=== PATIENT | female | born 1960 | race African-American/Black ===

== ENCOUNTER 2017-01-13 19:59 | Inpatient (IN) | payer MEDICARE, OTHER ==
[~2017-01-13] VITALS: Ht 162.6 cm; Wt 92.7 kg
[~2017-01-13 19:59] MED LIST: ALBU8.5H3 IH; ATOR40TA28 PO; GABA-531 PO; GRIS500T7 PO; LIRA0.6P SQ; METF500T4 PO; PARO20TA24 PO; PREM625 PO; VARE1TAB22 PO
[2017-01-13] MEDS ORDERED: LISI-662 PO (20:11)
[2017-01-13] MEDS ORDERED: CANA100T PO (20:11)
[2017-01-13 20:12] LABS: GLUCOSE,POINT OF CARE 110 MG/DL (70-110)
[2017-01-13 20:42] LABS: BASOPHILS % (AUTO) 0.7 % (0.0-2.0); EOSINOPHILS % (AUTO) 5.2 % (1.0-6.0); HEMATOCRIT 40.1 % (36-46); HEMOGLOBIN 12.7 g/dL (12.0-16.0); LYMPHOCYTES # (AUTO) 3.5 K/uL (1.0-4.8); LYMPHOCYTES % (AUTO) 42.4 % (22.0-44.0); MEAN CORPUSCULAR HEMOGLOBIN 28.3 pg (26.0-34.0); MEAN CORPUSCULAR HGB CONC 31.6 G/dL (31.0-37.0); MEAN CORPUSCULAR VOLUME 89 fL (80-100); MONOCYTES # (AUTO) 0.6 K/uL (0.1-1.0); MONOCYTES % (AUTO) 7.4 % (2.0-9.0); NEUTROPHILS # (AUTO) 3.7 K/uL (1.8-7.7); NEUTROPHILS % (AUTO) 44.3 % (40.0-70.0); PLATELET COUNT (AUTO) 338 K/uL (150-450); RED BLOOD CELL COUNT(AUTO) 4.48 MIL/uL (4.00-5.20); RED CELL DISTRIBUTION WIDTH 14.6 % (11.5-14.5); WHITE BLOOD COUNT (AUTO) 8.3 K/uL (4.5-11.0)
[2017-01-13] MEDS ORDERED: NITROGLYCERIN 2% (1 GM=INCH) PACKET TP ONE (20:45)
[2017-01-13] MEDS ORDERED: ASPIRIN 81 MG CHEWABLE TABLET PO ONE (20:45)
[2017-01-13 20:53] LABS: ANION GAP 9 mmol/L (8-16); CALCIUM, TOTAL 9.1 mg/dL (8.8-10.5); CARBON DIOXIDE 29 mmol/L (22-29); CHLORIDE 105 mmol/L (98-107); CREATININE 1.01 mg/dL (0.60-1.30); GLOMERULAR FILTR. RATE CALC > 60 mL/min (>60); POTASSIUM 3.5 mmol/L (3.5-5.1); SODIUM SERUM 143 mmol/L (136-145); UREA NITROGEN, BLOOD 15 mg/dL (7-18)
[2017-01-13 21:14] LABS: B-TYPE NATRIURETIC PEPTIDE 5 pg/mL (0-100)
[2017-01-13 21:18] LABS: ALANINE AMINOTRANSFERASE 20 U/L (12-78); ALBUMIN 3.4 g/dL (3.4-5.0); ASPARTATE AMINOTRANSFERASE 13 U/L (15-37); BILIRUBIN,TOTAL 0.1 mg/dL (0.1-1.0); CREATINE KINASE MB < 0.5 ng/mL (0-5); CREATINE KINASE, TOTAL 132 U/L (26-192); TOTAL PROTEIN, SERUM 7.9 g/dL (6.4-8.2)
[2017-01-13] MEDS ORDERED: MORPHINE SULFATE 4 MG/ML SYRINGE IVP ONE (21:30)
[2017-01-13] MEDS ORDERED: ONDANSETRON HCL 4 MG/2 ML VIAL IVP ONE (21:30)
[2017-01-13] MEDS ORDERED: MORPHINE SULFATE 4 MG/ML SYRINGE IVP PRN (22:00)
[2017-01-13] MEDS ORDERED: ONDANSETRON HCL 4 MG/2 ML VIAL IVP PRN (22:00)
[2017-01-13] MEDS ORDERED: 0.9% SODIUM CHLORIDE 10 ML SYRINGE IVP PRN (22:00)
[2017-01-13] MEDS ORDERED: ACETAMINOPHEN 325 MG TABLET PO PRN (22:00)
[2017-01-14] MEDS ORDERED: HYDROCODONE/ACETAMINOPHEN 5-325 MG TABLET PO PRN (01:15)
[2017-01-14] MEDS ORDERED: IPRATROPIUM BROMIDE 0.5 MG/2.5 ML NEB SOLUTION NEB PRN (01:15)
[2017-01-14] MEDS ORDERED: ACETAMINOPHEN 325 MG TABLET PO PRN (01:15)
[2017-01-14] MEDS ORDERED: ONDANSETRON HCL 4 MG/2 ML VIAL IVP PRN (01:15)
[2017-01-14] MEDS ORDERED: MAGNESIUM HYDROXIDE SUSPENSION 30 ML UDCUP PO PRN (01:15)
[2017-01-14] MEDS ORDERED: ZOLPIDEM TARTRATE 10 MG TABLET PO PRN (01:15)
[2017-01-14] MEDS: MORPHINE SULFATE 2 MG/ML SYRINGE IVP PRN ×4 (01:37→08:24)
[2017-01-14 01:51] LABS: APPEARANCE,URINE CLOUDY (CLEAR); GLUCOSE, URINE (UA) NEGATIVE (NEGATIVE); KETONES,URINE NEGATIVE (NEGATIVE); LEUKOCYTE ESTERASE ,URINE MODERATE (NEGATIVE); OCCULT BLOOD,URINE NEGATIVE (NEGATIVE); PROTEIN,URINE TRACE (NEGATIVE)
[2017-01-14 02:10] LABS: ADD UA MICROSCOPIC YES
[2017-01-14 02:20] LABS: SQUAMOUS EPITHELIAL CELL,UR Many /LPF (None Seen)
[2017-01-14 02:21] LABS: RBC,URINE 0-2 /HPF (0-2)
[2017-01-14 03:01] LABS: BASOPHILS % (AUTO) 0.7 % (0.0-2.0); EOSINOPHILS % (AUTO) 4.7 % (1.0-6.0); HEMATOCRIT 38.4 % (36-46); HEMOGLOBIN 12.2 g/dL (12.0-16.0); LYMPHOCYTES # (AUTO) 3.7 K/uL (1.0-4.8); MEAN CORPUSCULAR HEMOGLOBIN 28.2 pg (26.0-34.0); MEAN CORPUSCULAR HGB CONC 31.7 G/dL (31.0-37.0); MEAN CORPUSCULAR VOLUME 89 fL (80-100); MONOCYTES # (AUTO) 0.6 K/uL (0.1-1.0); NEUTROPHILS # (AUTO) 4.2 K/uL (1.8-7.7); NEUTROPHILS % (AUTO) 46.6 % (40.0-70.0); PLATELET COUNT (AUTO) 324 K/uL (150-450); RED BLOOD CELL COUNT(AUTO) 4.32 MIL/uL (4.00-5.20); RED CELL DISTRIBUTION WIDTH 14.1 % (11.5-14.5); WHITE BLOOD COUNT (AUTO) 9.1 K/uL (4.5-11.0)
[2017-01-14 03:47] LABS: ALANINE AMINOTRANSFERASE 23 U/L (12-78); ALBUMIN 3.4 g/dL (3.4-5.0); ANION GAP 8 mmol/L (8-16); ASPARTATE AMINOTRANSFERASE 15 U/L (15-37); BILIRUBIN,TOTAL 0.2 mg/dL (0.1-1.0); CALCIUM, TOTAL 8.8 mg/dL (8.8-10.5); CARBON DIOXIDE 28 mmol/L (22-29); CHLORIDE 105 mmol/L (98-107); CREATININE 1.04 mg/dL (0.60-1.30); GLOMERULAR FILTR. RATE CALC > 60 mL/min (>60); POTASSIUM 3.8 mmol/L (3.5-5.1); SODIUM SERUM 141 mmol/L (136-145); TOTAL PROTEIN, SERUM 7.8 g/dL (6.4-8.2); UREA NITROGEN, BLOOD 17 mg/dL (7-18)
[2017-01-14] MEDS: NITROGLYCERIN 2% (1 GM=INCH) PACKET TP SCH ×4 (05:19→23:59)
[2017-01-14] MEDS ORDERED: CANAGLIFLOZIN 100 MG TABLET PO SCH (06:30)
[2017-01-14] MEDS: DOCUSATE SODIUM 100 MG CAPSULE PO SCH ×2 (08:10→21:01)
[2017-01-14] MEDS: ASPIRIN 81 MG CHEWABLE TABLET PO SCH (08:10)
[2017-01-14] MEDS: ATORVASTATIN CALCIUM 40 MG TABLET PO SCH (08:11)
[2017-01-14] MEDS: PANTOPRAZOLE SODIUM 40 MG/VIAL IVP SCH (08:11)
[2017-01-14] MEDS ORDERED: OXYC80 PO (08:18)
[2017-01-14] MEDS ORDERED: OXYC30TA2 PO (08:18)
[2017-01-14] MEDS: LISINOPRIL 20 MG TABLET PO SCH (08:24)
[2017-01-14] MEDS: GABAPENTIN 100 MG CAPSULE PO SCH ×3 (08:46→21:00)
[2017-01-14 08:52] LABS: GLUCOSE,POINT OF CARE 159 MG/DL (70-110)
[2017-01-14] MEDS ORDERED: LIRAGLUTIDE 1.2 MG SQ SCH (09:00)
[2017-01-14 09:37] VITALS: BP 130/82
[2017-01-14] MEDS ORDERED: INSULIN REGULAR, HUMAN 100 UNITS/ML SQ PRN (10:00)
[2017-01-14] MEDS ORDERED: DEXTROSE 50%-WATER 25 GM/50 ML SYRINGE IVP PRN (10:00)
[2017-01-14 11:29] VITALS: BP 135/75
[2017-01-14] MEDS: OxyCODONE HCL 40 MG ER TABLET PO SCH ×3 (13:02→23:59)
[2017-01-14] MEDS: OxyCODONE HCL 10 MG IR TABLET PO PRN ×2 (13:03→21:01)
[2017-01-14 13:53] VITALS: BP 143/86
[2017-01-14 14:12] LABS: GLUCOSE,POINT OF CARE 207 MG/DL (70-110)
[2017-01-14 18:48] VITALS: BP 125/73
[2017-01-14 19:20] VITALS: BP 141/82
[2017-01-14] MEDS ORDERED: QUEtiapine FUMARATE 100 MG TABLET PO SCH (21:00)
[2017-01-14 23:41] VITALS: BP 121/58
[2017-01-15 04:05] VITALS: BP 125/63
[2017-01-15] MEDS: NITROGLYCERIN 2% (1 GM=INCH) PACKET TP SCH ×3 (06:39→17:42)
[2017-01-15 07:04] LABS: CHOL/HDL RATIO 4.1 (3.9-5.7)
[2017-01-15 07:12] VITALS: BP 126/74
[2017-01-15] MEDS: DOCUSATE SODIUM 100 MG CAPSULE PO SCH (08:34)
[2017-01-15] MEDS: LISINOPRIL 20 MG TABLET PO SCH (08:34)
[2017-01-15] MEDS: ATORVASTATIN CALCIUM 40 MG TABLET PO SCH (08:34)
[2017-01-15] MEDS: GABAPENTIN 100 MG CAPSULE PO SCH ×2 (08:34→17:42)
[2017-01-15] MEDS: ASPIRIN 81 MG CHEWABLE TABLET PO SCH (08:34)
[2017-01-15] MEDS: OxyCODONE HCL 10 MG IR TABLET PO PRN ×2 (08:41→15:50)
[2017-01-15] MEDS: OxyCODONE HCL 40 MG ER TABLET PO SCH ×2 (10:49→17:42)
[2017-01-15] MEDS: PANTOPRAZOLE SODIUM 40 MG/VIAL IVP SCH (10:55)
[2017-01-15 11:34] VITALS: BP 137/84
[2017-01-15] MEDS ORDERED: INSULIN ASPART 100 UNITS/ML SQ PRN (12:00)
[2017-01-15 13:38] LABS: GLUCOSE,POINT OF CARE 136 MG/DL (70-110)
[2017-01-15 13:38] LABS: GLUCOSE COMMENT 1 Received Meds; GLUCOSE,POINT OF CARE 167 MG/DL (70-110)
[2017-01-15 13:42] LABS: GLUCOSE,POINT OF CARE 131 MG/DL (70-110)
[2017-01-15 15:14] VITALS: BP 143/86
[2017-01-15] MEDS ORDERED: GABA-531 PO (19:29)
[2017-01-15 19:32] VITALS: BP 126/68
[2017-01-15 20:47] LABS: GLUCOSE,POINT OF CARE 132 MG/DL (70-110)
== END 2017-01-15 19:50 | disposition home or self-care (01) | DRG 313 ==
LOC: EMS 20:00 → AHU 01-14 08:35 → 5N 01-14 18:11
PROVIDERS: ADMIT Hospitalist; ATTEND Hospitalist
DX: R07.9 Chest pain, unspecified (principal); I10 Essential (primary) hypertension; E11.9 Type 2 diabetes mellitus without complications; E78.5 Hyperlipidemia, unspecified; G89.4 Chronic pain syndrome; F41.9 Anxiety disorder, unspecified; J45.909 Unspecified asthma, uncomplicated; F32.9 Major depressive disorder, single episode, unspecified; I25.10 Atherosclerotic heart disease of native coronary artery without angina pectoris; J44.9 Chronic obstructive pulmonary disease, unspecified; F17.210 Nicotine dependence, cigarettes, uncomplicated; Z90.710 Acquired absence of both cervix and uterus; Z79.899 Other long term (current) drug therapy; Z79.84 Long term (current) use of oral hypoglycemic drugs; Z87.440 Personal history of urinary (tract) infections
CPT/HCPCS: 72141; 82962; 87086; 93005; 99285; C9113; J2270; J2405

== ENCOUNTER 2017-02-10 08:49 | Emergency (ER) | payer MEDICARE, OTHER ==
[~2017-02-10] VITALS: Ht 162.6 cm; Wt 84.1 kg
[~2017-02-10 08:49] MED LIST changes: +CANA100T PO; -GRIS500T7 PO; +LISI-662 PO; -METF500T4 PO; +OXYC30TA2 PO; +OXYC80 PO; -PARO20TA24 PO; -PREM625 PO; -VARE1TAB22 PO
[2017-02-10 09:02] LABS: GLUCOSE,POINT OF CARE 137 MG/DL (70-110)
[2017-02-10] MEDS ORDERED: ONDANSETRON HCL 4 MG/2 ML VIAL IVP ONE (11:30)
[2017-02-10] MEDS ORDERED: MORPHINE SULFATE 2 MG/ML SYRINGE IVP ONE ×2 (11:30→12:30)
[2017-02-10 12:03] VITALS: BP 119/84
== END 2017-02-10 13:40 | disposition left against medical advice (07) ==
LOC: EMS 08:51
DX: G43.909 Migraine, unspecified, not intractable, without status migrainosus (principal); I25.10 Atherosclerotic heart disease of native coronary artery without angina pectoris; J44.9 Chronic obstructive pulmonary disease, unspecified; J45.909 Unspecified asthma, uncomplicated; E11.9 Type 2 diabetes mellitus without complications; I10 Essential (primary) hypertension; F17.210 Nicotine dependence, cigarettes, uncomplicated
CPT/HCPCS: 70450; 82962; 96374; 96375; 99284; J2270; J2405

== ENCOUNTER 2017-07-10 12:40 | Inpatient (IN) | payer MEDICARE, OTHER ==
[~2017-07-10] VITALS: Ht 162.6 cm; Wt 88.2 kg
[~2017-07-10 12:40] MED LIST changes: -OXYC80 PO
[2017-07-10 12:53] LABS: GLUCOSE,POINT OF CARE 97 MG/DL (70-110)
[2017-07-10] MEDS ORDERED: IOVERSOL 350 MG/ML 100 ML VIAL ONE (13:00)
[2017-07-10 13:25] LABS: BASOPHILS % (AUTO) 0.3 % (0.0-2.0); EOSINOPHILS % (AUTO) 2.1 % (1.0-6.0); HEMATOCRIT 39.3 % (36-46); HEMOGLOBIN 13.2 g/dL (12.0-16.0); LYMPHOCYTES # (AUTO) 2.2 K/uL (1.0-4.8); LYMPHOCYTES % (AUTO) 24.5 % (22.0-44.0); MEAN CORPUSCULAR HEMOGLOBIN 30.4 pg (26.0-34.0); MEAN CORPUSCULAR HGB CONC 33.5 G/dL (31.0-37.0); MEAN CORPUSCULAR VOLUME 91 fL (80-100); MONOCYTES % (AUTO) 10.5 % (2.0-9.0); NEUTROPHILS # (AUTO) 5.7 K/uL (1.8-7.7); NEUTROPHILS % (AUTO) 62.6 % (40.0-70.0); PLATELET COUNT (AUTO) 316 K/uL (150-450); RED BLOOD CELL COUNT(AUTO) 4.34 MIL/uL (4.00-5.20); RED CELL DISTRIBUTION WIDTH 13.8 % (11.5-14.5); WHITE BLOOD COUNT (AUTO) 9.1 K/uL (4.5-11.0)
[2017-07-10 13:33] LABS: ANION GAP 10 mmol/L (8-16); CALCIUM, TOTAL 9.5 mg/dL (8.8-10.5); CARBON DIOXIDE 27 mmol/L (22-29); CHLORIDE 105 mmol/L (98-107); CREATININE 0.96 mg/dL (0.60-1.30); GLOMERULAR FILTR. RATE CALC > 60 mL/min (>60); POTASSIUM 4.2 mmol/L (3.5-5.1); SODIUM SERUM 142 mmol/L (136-145); UREA NITROGEN, BLOOD 15 mg/dL (7-18)
[2017-07-10 13:35] LABS: PROTHROMBIN TIME 10.7 SEC (9.4-11.6)
[2017-07-10] MEDS ORDERED: ASPIRIN 325 MG EC TABLET PO ONE (13:45)
[2017-07-10 13:58] LABS: ALANINE AMINOTRANSFERASE 23 U/L (12-78); ALBUMIN 4.1 g/dL (3.4-5.0); ASPARTATE AMINOTRANSFERASE 18 U/L (15-37); BILIRUBIN,TOTAL 0.6 mg/dL (0.1-1.0); CREATINE KINASE, TOTAL 144 U/L (26-192); TOTAL PROTEIN, SERUM 7.9 g/dL (6.4-8.2)
[2017-07-10] MEDS ORDERED: SODIUM CHLORIDE 0.9% 1,000 ML IV ONE (14:00)
[2017-07-10 14:02] LABS: CREATINE KINASE MB < 0.5 ng/mL (0-5)
[2017-07-10 14:19] LABS: APPEARANCE,URINE CLEAR (CLEAR); GLUCOSE, URINE (UA) >=1000 mg/dL (NEGATIVE); KETONES,URINE NEGATIVE (NEGATIVE); LEUKOCYTE ESTERASE ,URINE NEGATIVE (NEGATIVE); OCCULT BLOOD,URINE NEGATIVE (NEGATIVE); PROTEIN,URINE NEGATIVE (NEGATIVE)
[2017-07-10 14:27] LABS: ADD UA MICROSCOPIC YES
[2017-07-10 14:28] LABS: RBC,URINE 0-2 /HPF (0-2); SQUAMOUS EPITHELIAL CELL,UR Few /LPF (None Seen); WBC,URINE 0-2 /HPF (0-5)
[2017-07-10 14:57] LABS: ERYTHROCYTE SEDIMENTATION RATE 31 MM/HR (0-20)
[2017-07-10] MEDS ORDERED: ZOLPIDEM TARTRATE 5 MG TABLET PO PRN (17:00)
[2017-07-10] MEDS ORDERED: MAGNESIUM HYDROXIDE SUSPENSION 30 ML UDCUP PO PRN (17:00)
[2017-07-10] MEDS ORDERED: ONDANSETRON HCL 4 MG/2 ML VIAL IVP PRN (17:00)
[2017-07-10] MEDS ORDERED: MORPHINE SULFATE 2 MG/ML SYRINGE IVP PRN (17:00)
[2017-07-10] MEDS ORDERED: ACETAMINOPHEN 325 MG TABLET PO PRN (17:00)
[2017-07-10] MEDS ORDERED: BISACODYL 10 MG RECTAL RECTAL SUPPOSITORY PR PRN (17:00)
[2017-07-10] MEDS: DOCUSATE SODIUM 100 MG CAPSULE PO SCH (19:53)
[2017-07-10 20:00] VITALS: BP 135/68
[2017-07-10 20:11] VITALS: BP 113/64
[2017-07-10] MEDS ORDERED: INFLUENZA VIRUS VACCINE QVS 2017-18 (3YR+)/PF 60 MCG/0.5 ML SYRINGE IM ONE (20:30)
[2017-07-10] MEDS ORDERED: OxyCODONE HCL/ACETAMINOPHEN 5-325 MG TABLET PO PRN (21:45)
[2017-07-10 22:00] VITALS: BP 118/72
[2017-07-10] MEDS: OxyCODONE HCL/ACETAMINOPHEN 5-325 MG TABLET PO PRN (22:05)
[2017-07-10 23:05] VITALS: BP 114/68
[2017-07-10] MEDS: HEPARIN SODIUM,PORCINE 5,000 UNITS/ML VIAL SQ SCH ×2 (23:41→23:47)
[2017-07-11] VITALS (7 sets, daily range): BP systolic 101–130; BP diastolic 50–80
[2017-07-11] MEDS: OxyCODONE HCL/ACETAMINOPHEN 5-325 MG TABLET PO PRN ×2 (04:49→13:03)
[2017-07-11 04:54] LABS: BASOPHILS # (AUTO) 0.03 K/uL (0.00-0.20); BASOPHILS % (AUTO) 0.4 % (0.0-2.0); EOSINOPHILS # (AUTO) 0.23 K/uL (0.00-0.70); EOSINOPHILS % (AUTO) 3.73 % (1.0-6.0); HEMATOCRIT 38.5 % (36-46); HEMOGLOBIN 12.6 g/dL (12.0-16.0); LYMPHOCYTES # (AUTO) 2.1 K/uL (1.0-4.8); LYMPHOCYTES % (AUTO) 34.9 % (22.0-44.0); MEAN CORPUSCULAR HEMOGLOBIN 30.1 pg (26.0-34.0); MEAN CORPUSCULAR HGB CONC 32.6 G/dL (31.0-37.0); MEAN CORPUSCULAR VOLUME 92 fL (80-100); MONOCYTES # (AUTO) 0.8 K/uL (0.1-1.0); MONOCYTES % (AUTO) 13.5 % (2.0-9.0); NEUTROPHILS # (AUTO) 2.9 K/uL (1.8-7.7); NEUTROPHILS % (AUTO) 47.4 % (40.0-70.0); PLATELET COUNT (AUTO) 291 K/uL (150-450); RED BLOOD CELL COUNT(AUTO) 4.18 MIL/uL (4.00-5.20); RED CELL DISTRIBUTION WIDTH 14.2 % (11.5-14.5); WHITE BLOOD COUNT (AUTO) 6.1 K/uL (4.5-11.0)
[2017-07-11 05:24] LABS: ANION GAP 6 mmol/L (8-16); CALCIUM, TOTAL 8.9 mg/dL (8.8-10.5); CARBON DIOXIDE 28 mmol/L (22-29); CHLORIDE 107 mmol/L (98-107); CREATININE 0.88 mg/dL (0.60-1.30); GLOMERULAR FILTR. RATE CALC > 60 mL/min (>60); POTASSIUM 4.1 mmol/L (3.5-5.1); SODIUM SERUM 141 mmol/L (136-145); THYROID STIMULATING HORMONE 5.34 uIU/mL (0.36-3.74); UREA NITROGEN, BLOOD 13 mg/dL (7-18)
[2017-07-11] MEDS: HEPARIN SODIUM,PORCINE 5,000 UNITS/ML VIAL SQ SCH ×2 (08:11→16:00)
[2017-07-11] MEDS: DOCUSATE SODIUM 100 MG CAPSULE PO SCH (08:11)
[2017-07-11] MEDS ORDERED: PANTOPRAZOLE SODIUM 40 MG DR TABLET PO SCH (09:00)
[2017-07-11] MEDS: HYDROCODONE/ACETAMINOPHEN 5-325 MG TABLET PO PRN ×2 (10:37→16:21)
[2017-07-11 17:39] LABS: CHOL/HDL RATIO 2.7 (3.9-5.7)
[2017-07-11 18:09] LABS: HEMOGLOBIN A1C 7.4 % (4.5-6.2)
[2017-07-11] MEDS ORDERED: ASPIRIN 81 MG CHEWABLE TABLET PO ONE (20:00)
== END 2017-07-11 18:20 | DRG 66 ==
LOC: EMS 12:41 → ICU 17:38
PROVIDERS: ADMIT Internal Medicine; ATTEND Internal Medicine
DX: I63.9 Cerebral infarction, unspecified (principal); R47.01 Aphasia; E11.9 Type 2 diabetes mellitus without complications; E78.5 Hyperlipidemia, unspecified; I10 Essential (primary) hypertension; J45.909 Unspecified asthma, uncomplicated; H54.40 Blindness, one eye, unspecified eye; I25.10 Atherosclerotic heart disease of native coronary artery without angina pectoris; F41.9 Anxiety disorder, unspecified; J44.9 Chronic obstructive pulmonary disease, unspecified; F32.9 Major depressive disorder, single episode, unspecified; F17.210 Nicotine dependence, cigarettes, uncomplicated; Z87.440 Personal history of urinary (tract) infections; Z79.899 Other long term (current) drug therapy; Z90.710 Acquired absence of both cervix and uterus; Z86.73 Personal history of transient ischemic attack (TIA), and cerebral infarction without residual deficits
CPT/HCPCS: 51702; 70496; 70551; 82607; 82746; 82962; 83036; 84443; 85651; 87081; 92523; 93005; 93306; 93880; 96360; 97162; 99291; J1644; J2270

== ENCOUNTER 2017-07-11 17:46 | Inpatient (IN) | payer MEDICARE, OTHER ==
[~2017-07-11] VITALS: Ht 162.6 cm; Wt 85.7 kg
[2017-07-11 18:45] VITALS: BP 126/69
[2017-07-11] MEDS ORDERED: HYDROCODONE/ACETAMINOPHEN 5-325 MG TABLET PO PRN (19:15)
[2017-07-11] MEDS ORDERED: ALBUTEROL SULFATE HFA 90 MCG/PUFF 8 GM INHALER IH PRN (19:15)
[2017-07-11] MEDS ORDERED: ONDANSETRON HCL 4 MG TABLET PO PRN (19:15)
[2017-07-11] MEDS ORDERED: ACETAMINOPHEN 325 MG TABLET PO PRN (19:15)
[2017-07-11] MEDS ORDERED: MAGNESIUM HYDROXIDE SUSPENSION 30 ML UDCUP PO PRN (19:15)
[2017-07-11] MEDS ORDERED: ZOLPIDEM TARTRATE 5 MG TABLET PO PRN (19:15)
[2017-07-11] MEDS ORDERED: INFLUENZA VIRUS VACCINE QVS 2017-18 (3YR+)/PF 60 MCG/0.5 ML SYRINGE IM ONE (21:00)
[2017-07-11] MEDS: GABAPENTIN 300 MG CAPSULE PO SCH (21:16)
[2017-07-11] MEDS: HEPARIN SODIUM,PORCINE 5,000 UNITS/ML VIAL SQ SCH (21:17)
[2017-07-11] MEDS: DOCUSATE SODIUM 100 MG CAPSULE PO SCH (21:18)
[2017-07-11] MEDS: SENNA 187 MG TABLET PO SCH (21:18)
[2017-07-11 21:24] LABS: APPEARANCE,URINE CLOUDY (CLEAR); GLUCOSE, URINE (UA) >=1000 mg/dL (NEGATIVE); KETONES,URINE NEGATIVE (NEGATIVE); LEUKOCYTE ESTERASE ,URINE MODERATE (NEGATIVE); OCCULT BLOOD,URINE SMALL (NEGATIVE); PH,URINE 6.5 (5.0-8.0); PROTEIN,URINE TRACE (NEGATIVE)
[2017-07-11 21:32] LABS: GLUCOSE,POINT OF CARE 172 MG/DL (70-110)
[2017-07-11 21:43] LABS: RBC,URINE 0-2 /HPF (0-2)
[2017-07-11 21:44] LABS: SQUAMOUS EPITHELIAL CELL,UR Few /LPF (None Seen)
[2017-07-11] MEDS: OxyCODONE HCL/ACETAMINOPHEN 5-325 MG TABLET PO PRN (21:45)
[2017-07-11 23:59] VITALS: BP 122/73
[2017-07-12] MEDS: OxyCODONE HCL/ACETAMINOPHEN 5-325 MG TABLET PO PRN ×4 (04:57→17:09)
[2017-07-12 06:03] LABS: GLUCOSE,POINT OF CARE 145 MG/DL (70-110)
[2017-07-12 06:25] LABS: BASOPHILS % (AUTO) 0.4 % (0.0-2.0); EOSINOPHILS % (AUTO) 3.4 % (1.0-6.0); HEMATOCRIT 39.4 % (36-46); HEMOGLOBIN 13.4 g/dL (12.0-16.0); LYMPHOCYTES # (AUTO) 2.6 K/uL (1.0-4.8); LYMPHOCYTES % (AUTO) 38.2 % (22.0-44.0); MEAN CORPUSCULAR HEMOGLOBIN 30.6 pg (26.0-34.0); MEAN CORPUSCULAR VOLUME 90 fL (80-100); MONOCYTES # (AUTO) 0.7 K/uL (0.1-1.0); MONOCYTES % (AUTO) 10.1 % (2.0-9.0); NEUTROPHILS # (AUTO) 3.3 K/uL (1.8-7.7); NEUTROPHILS % (AUTO) 47.9 % (40.0-70.0); PLATELET COUNT (AUTO) 309 K/uL (150-450); RED BLOOD CELL COUNT(AUTO) 4.38 MIL/uL (4.00-5.20); RED CELL DISTRIBUTION WIDTH 13.8 % (11.5-14.5); WHITE BLOOD COUNT (AUTO) 6.9 K/uL (4.5-11.0)
[2017-07-12 06:54] LABS: ALANINE AMINOTRANSFERASE 25 U/L (12-78); ALBUMIN 3.6 g/dL (3.4-5.0); ANION GAP 11 mmol/L (8-16); ASPARTATE AMINOTRANSFERASE 21 U/L (15-37); BILIRUBIN,TOTAL 0.3 mg/dL (0.1-1.0); CALCIUM, TOTAL 9.1 mg/dL (8.8-10.5); CARBON DIOXIDE 26 mmol/L (22-29); CHLORIDE 107 mmol/L (98-107); CREATININE 0.92 mg/dL (0.60-1.30); GLOMERULAR FILTR. RATE CALC > 60 mL/min (>60); POTASSIUM 3.8 mmol/L (3.5-5.1); SODIUM SERUM 144 mmol/L (136-145); TOTAL PROTEIN, SERUM 7.6 g/dL (6.4-8.2); UREA NITROGEN, BLOOD 14 mg/dL (7-18)
[2017-07-12] MEDS ORDERED: CANAGLIFLOZIN 100 MG PO SCH (07:00)
[2017-07-12 08:17] VITALS: BP 117/74
[2017-07-12] MEDS: GABAPENTIN 300 MG CAPSULE PO SCH ×3 (08:39→21:19)
[2017-07-12] MEDS: ATORVASTATIN CALCIUM 40 MG TABLET PO SCH (09:22)
[2017-07-12] MEDS: DOCUSATE SODIUM 100 MG CAPSULE PO SCH ×2 (09:22→21:19)
[2017-07-12] MEDS: LISINOPRIL 20 MG TABLET PO SCH (09:22)
[2017-07-12] MEDS: PANTOPRAZOLE SODIUM 40 MG DR TABLET PO SCH (09:22)
[2017-07-12] MEDS: HEPARIN SODIUM,PORCINE 5,000 UNITS/ML VIAL SQ SCH ×3 (09:22→21:20)
[2017-07-12] MEDS ORDERED: *PATIENT'S OWN MED [ENTER DRUG, DOSE, FREQUENCY IN COMMENTS] CLINICAL ONE ×2 (12:15)
[2017-07-12] MEDS: CANAGLIFLOZIN 300 MG PO SCH (12:40)
[2017-07-12] MEDS: PRE FILLED SQ SCH (13:20)
[2017-07-12] MEDS: LIRAGLUTIDE 18 MG/3 ML SQ SCH (13:20)
[2017-07-12 15:29] VITALS: BP 103/65
[2017-07-12 17:37] LABS: GLUCOSE,POINT OF CARE 148 MG/DL (70-110)
[2017-07-12] MEDS: SENNA 187 MG TABLET PO SCH (21:19)
[2017-07-12 22:18] LABS: GLUCOSE,POINT OF CARE 149 MG/DL (70-110)
[2017-07-12 22:47] LABS: GLUCOSE,POINT OF CARE 136 MG/DL (70-110)
[2017-07-13 05:38] VITALS: BP 106/60
[2017-07-13 06:22] LABS: GLUCOSE,POINT OF CARE 102 MG/DL (70-110)
[2017-07-13] MEDS: CANAGLIFLOZIN 300 MG PO SCH (06:48)
[2017-07-13 08:10] VITALS: BP 120/70
[2017-07-13] MEDS: OxyCODONE HCL/ACETAMINOPHEN 5-325 MG TABLET PO PRN (08:17)
[2017-07-13] MEDS: PRE FILLED SQ SCH (08:20)
[2017-07-13] MEDS: GABAPENTIN 300 MG CAPSULE PO SCH ×3 (08:20→20:39)
[2017-07-13] MEDS: ATORVASTATIN CALCIUM 40 MG TABLET PO SCH (08:20)
[2017-07-13] MEDS: HEPARIN SODIUM,PORCINE 5,000 UNITS/ML VIAL SQ SCH ×3 (08:20→20:39)
[2017-07-13] MEDS: LIRAGLUTIDE 18 MG/3 ML SQ SCH (08:20)
[2017-07-13] MEDS: LISINOPRIL 20 MG TABLET PO SCH (08:20)
[2017-07-13] MEDS: DOCUSATE SODIUM 100 MG CAPSULE PO SCH ×2 (08:20→20:39)
[2017-07-13] MEDS: PANTOPRAZOLE SODIUM 40 MG DR TABLET PO SCH (08:20)
[2017-07-13 12:13] LABS: GLUCOSE,POINT OF CARE 91 MG/DL (70-110)
[2017-07-13] MEDS: ASPIRIN 81 MG EC TABLET PO SCH (14:21)
[2017-07-13] MEDS: OxyCODONE HCL 5 MG IR TABLET PO PRN ×2 (14:34→18:53)
[2017-07-13] MEDS ORDERED: FLUTICASONE FUROATE 100 MCG/INH INHALER [14] IH PRN (15:30)
[2017-07-13 15:33] VITALS: BP 128/72
[2017-07-13 17:51] LABS: APPEARANCE,URINE CLOUDY (CLEAR); GLUCOSE, URINE (UA) >=1000 mg/dL (NEGATIVE); KETONES,URINE NEGATIVE (NEGATIVE); LEUKOCYTE ESTERASE ,URINE SMALL (NEGATIVE); OCCULT BLOOD,URINE NEGATIVE (NEGATIVE); PROTEIN,URINE NEGATIVE (NEGATIVE)
[2017-07-13 18:07] LABS: RBC,URINE 0-2 /HPF (0-2); SQUAMOUS EPITHELIAL CELL,UR Few /LPF (None Seen)
[2017-07-13] MEDS ORDERED: ALBUTEROL SULFATE HFA 90 MCG/PUFF 8 GM INHALER IH PRN (19:15)
[2017-07-13 19:22] LABS: GLUCOSE,POINT OF CARE 119 MG/DL (70-110)
[2017-07-13] MEDS: SENNA 187 MG TABLET PO SCH (20:39)
[2017-07-13] MEDS: OxyCODONE HCL 10 MG ER TABLET PO SCH (20:39)
[2017-07-13 22:37] LABS: GLUCOSE,POINT OF CARE 152 MG/DL (70-110)
[2017-07-14 01:04] VITALS: BP 100/61
[2017-07-14 05:53] LABS: GLUCOSE,POINT OF CARE 181 MG/DL (70-110)
[2017-07-14] MEDS: CANAGLIFLOZIN 300 MG PO SCH (06:25)
[2017-07-14 07:30] VITALS: BP 103/57
[2017-07-14] MEDS: OxyCODONE HCL 10 MG ER TABLET PO SCH ×2 (08:02→21:07)
[2017-07-14] MEDS: ATORVASTATIN CALCIUM 40 MG TABLET PO SCH (08:03)
[2017-07-14] MEDS: PRE FILLED SQ SCH (08:03)
[2017-07-14] MEDS: LISINOPRIL 20 MG TABLET PO SCH (08:03)
[2017-07-14] MEDS: PANTOPRAZOLE SODIUM 40 MG DR TABLET PO SCH (08:03)
[2017-07-14] MEDS: ASPIRIN 81 MG EC TABLET PO SCH (08:03)
[2017-07-14] MEDS: LIRAGLUTIDE 18 MG/3 ML SQ SCH (08:03)
[2017-07-14] MEDS: GABAPENTIN 300 MG CAPSULE PO SCH ×3 (08:03→21:07)
[2017-07-14] MEDS: FLUTICASONE FUROATE 100 MCG/INH INHALER [14] IH SCH (08:03)
[2017-07-14] MEDS: DOCUSATE SODIUM 100 MG CAPSULE PO SCH ×2 (08:03→21:07)
[2017-07-14] MEDS: HEPARIN SODIUM,PORCINE 5,000 UNITS/ML VIAL SQ SCH ×3 (08:03→21:07)
[2017-07-14] MEDS: FENOFIBRATE,MICRONIZED 67 MG CAPSULE PO SCH (08:40)
[2017-07-14] MEDS ORDERED: FENOFIBRATE 48 MG TABLET PO SCH (09:00)
[2017-07-14 11:28] LABS: GLUCOSE,POINT OF CARE 124 MG/DL (70-110)
[2017-07-14] MEDS: OxyCODONE HCL 5 MG IR TABLET PO PRN ×2 (12:46→16:49)
[2017-07-14] MEDS: LEVOTHYROXINE SODIUM 25 MCG TABLET PO SCH (12:53)
[2017-07-14 15:21] VITALS: BP 118/72
[2017-07-14] MEDS: GuaiFENesin [SUGAR-FREE] 200 MG/10 ML SOLUTION UDCUP PO PRN (16:20)
[2017-07-14 17:42] LABS: GLUCOSE,POINT OF CARE 121 MG/DL (70-110)
[2017-07-14] MEDS ORDERED: GuaiFENesin [SUGAR-FREE] 200 MG/10 ML SOLUTION UDCUP PO SCH (18:00)
[2017-07-14] MEDS ORDERED: QUEtiapine FUMARATE 25 MG TABLET PO SCH (21:00)
[2017-07-14] MEDS: SENNA 187 MG TABLET PO SCH (21:07)
[2017-07-14 22:27] LABS: GLUCOSE,POINT OF CARE 107 MG/DL (70-110)
[2017-07-14 23:48] VITALS: BP 124/79
[2017-07-15 06:28] LABS: GLUCOSE,POINT OF CARE 110 MG/DL (70-110)
[2017-07-15] MEDS: LEVOTHYROXINE SODIUM 25 MCG TABLET PO SCH (06:53)
[2017-07-15] MEDS: CANAGLIFLOZIN 300 MG PO SCH (06:53)
[2017-07-15 09:15] VITALS: BP 107/62
[2017-07-15] MEDS: HEPARIN SODIUM,PORCINE 5,000 UNITS/ML VIAL SQ SCH ×3 (09:58→21:05)
[2017-07-15] MEDS: LISINOPRIL 20 MG TABLET PO SCH (09:59)
[2017-07-15] MEDS: ATORVASTATIN CALCIUM 40 MG TABLET PO SCH (09:59)
[2017-07-15] MEDS: FENOFIBRATE,MICRONIZED 67 MG CAPSULE PO SCH (09:59)
[2017-07-15] MEDS: GABAPENTIN 300 MG CAPSULE PO SCH ×3 (09:59→21:05)
[2017-07-15] MEDS: LIRAGLUTIDE 18 MG/3 ML SQ SCH (09:59)
[2017-07-15] MEDS: ASPIRIN 81 MG EC TABLET PO SCH (09:59)
[2017-07-15] MEDS: PRE FILLED SQ SCH (09:59)
[2017-07-15] MEDS: FLUTICASONE FUROATE 100 MCG/INH INHALER [14] IH SCH (09:59)
[2017-07-15] MEDS: PANTOPRAZOLE SODIUM 40 MG DR TABLET PO SCH (09:59)
[2017-07-15] MEDS: POLYETHYLENE GLYCOL 3350 17 GM PACKET PO SCH (09:59)
[2017-07-15] MEDS: DOCUSATE SODIUM 100 MG CAPSULE PO SCH ×2 (09:59→21:06)
[2017-07-15] MEDS: OxyCODONE HCL 10 MG ER TABLET PO SCH ×2 (10:00→21:12)
[2017-07-15] MEDS: GuaiFENesin [SUGAR-FREE] 200 MG/10 ML SOLUTION UDCUP PO PRN (10:30)
[2017-07-15 11:58] LABS: GLUCOSE,POINT OF CARE 131 MG/DL (70-110)
[2017-07-15] MEDS ORDERED: DOCUSATE SODIUM 283 MG/5 ML MINI-ENEMA PR PRN ×2 (13:15)
[2017-07-15] MEDS: OxyCODONE HCL 5 MG IR TABLET PO PRN ×2 (13:30→17:00)
[2017-07-15 15:19] VITALS: BP 133/82
[2017-07-15 17:48] LABS: GLUCOSE,POINT OF CARE 97 MG/DL (70-110)
[2017-07-15] MEDS: SENNA 187 MG TABLET PO SCH (21:05)
[2017-07-15] MEDS: QUEtiapine FUMARATE 100 MG TABLET PO SCH (21:12)
[2017-07-15 21:43] LABS: GLUCOSE,POINT OF CARE 128 MG/DL (70-110)
[2017-07-15] MEDS ORDERED: QUET100T PO (23:09)
[2017-07-15 23:20] VITALS: BP 119/57
[2017-07-16] MEDS: GuaiFENesin [SUGAR-FREE] 200 MG/10 ML SOLUTION UDCUP PO PRN ×2 (00:22→11:55)
[2017-07-16] MEDS: OxyCODONE HCL 5 MG IR TABLET PO PRN ×2 (00:23→11:52)
[2017-07-16 06:23] LABS: GLUCOSE,POINT OF CARE 150 MG/DL (70-110)
[2017-07-16] MEDS: LEVOTHYROXINE SODIUM 25 MCG TABLET PO SCH (06:41)
[2017-07-16] MEDS: CANAGLIFLOZIN 300 MG PO SCH (06:41)
[2017-07-16 08:15] VITALS: BP 114/63
[2017-07-16] MEDS: FLUTICASONE FUROATE 100 MCG/INH INHALER [14] IH SCH (08:21)
[2017-07-16] MEDS: FENOFIBRATE,MICRONIZED 67 MG CAPSULE PO SCH (08:22)
[2017-07-16] MEDS: GABAPENTIN 300 MG CAPSULE PO SCH ×3 (08:23→21:20)
[2017-07-16] MEDS: DOCUSATE SODIUM 100 MG CAPSULE PO SCH ×2 (08:23→21:20)
[2017-07-16] MEDS: ATORVASTATIN CALCIUM 40 MG TABLET PO SCH (08:23)
[2017-07-16] MEDS: HEPARIN SODIUM,PORCINE 5,000 UNITS/ML VIAL SQ SCH ×2 (08:23→08:43)
[2017-07-16] MEDS: LISINOPRIL 20 MG TABLET PO SCH (08:23)
[2017-07-16] MEDS: PANTOPRAZOLE SODIUM 40 MG DR TABLET PO SCH (08:24)
[2017-07-16] MEDS: ASPIRIN 81 MG EC TABLET PO SCH (08:24)
[2017-07-16] MEDS: OxyCODONE HCL 10 MG ER TABLET PO SCH ×3 (08:24→21:21)
[2017-07-16] MEDS: POLYETHYLENE GLYCOL 3350 17 GM PACKET PO SCH (08:24)
[2017-07-16] MEDS: PRE FILLED SQ SCH ×3 (08:25→13:27)
[2017-07-16] MEDS: LIRAGLUTIDE 18 MG/3 ML SQ SCH ×3 (08:25→13:27)
[2017-07-16 15:39] VITALS: BP 107/63
[2017-07-16 17:22] LABS: GLUCOSE,POINT OF CARE 143 MG/DL (70-110)
[2017-07-16] MEDS: QUEtiapine FUMARATE 100 MG TABLET PO SCH (21:20)
[2017-07-16] MEDS: SENNA 187 MG TABLET PO SCH (21:20)
[2017-07-16 22:42] LABS: GLUCOSE,POINT OF CARE 106 MG/DL (70-110)
[2017-07-17 00:16] VITALS: BP 121/73
[2017-07-17 01:28] LABS: GLUCOSE,POINT OF CARE 131 MG/DL (70-110)
[2017-07-17] MEDS: LEVOTHYROXINE SODIUM 25 MCG TABLET PO SCH (06:12)
[2017-07-17] MEDS: CANAGLIFLOZIN 300 MG PO SCH (06:13)
[2017-07-17 06:23] LABS: GLUCOSE,POINT OF CARE 98 MG/DL (70-110)
[2017-07-17 07:50] VITALS: BP 110/66
[2017-07-17] MEDS: POLYETHYLENE GLYCOL 3350 17 GM PACKET PO SCH (07:57)
[2017-07-17] MEDS: FLUTICASONE FUROATE 100 MCG/INH INHALER [14] IH SCH (07:57)
[2017-07-17] MEDS: ASPIRIN 81 MG EC TABLET PO SCH (07:57)
[2017-07-17] MEDS: PANTOPRAZOLE SODIUM 40 MG DR TABLET PO SCH (07:58)
[2017-07-17] MEDS: PRE FILLED SQ SCH (07:58)
[2017-07-17] MEDS: GABAPENTIN 300 MG CAPSULE PO SCH ×3 (07:58→20:10)
[2017-07-17] MEDS: OxyCODONE HCL 10 MG ER TABLET PO SCH ×3 (07:58→20:10)
[2017-07-17] MEDS: LISINOPRIL 20 MG TABLET PO SCH (07:58)
[2017-07-17] MEDS: LIRAGLUTIDE 18 MG/3 ML SQ SCH (07:58)
[2017-07-17] MEDS: DOCUSATE SODIUM 250 MG CAPSULE PO SCH ×2 (07:58→20:11)
[2017-07-17 10:54] LABS: ANION GAP 6 mmol/L (8-16); CALCIUM, TOTAL 9.9 mg/dL (8.8-10.5); CARBON DIOXIDE 31 mmol/L (22-29); CHLORIDE 103 mmol/L (98-107); CREATININE 0.93 mg/dL (0.60-1.30); GLOMERULAR FILTR. RATE CALC > 60 mL/min (>60); POTASSIUM 4.4 mmol/L (3.5-5.1); SODIUM SERUM 140 mmol/L (136-145); UREA NITROGEN, BLOOD 23 mg/dL (7-18)
[2017-07-17] MEDS: OxyCODONE HCL 5 MG IR TABLET PO PRN (11:04)
[2017-07-17 13:13] LABS: GLUCOSE,POINT OF CARE 101 MG/DL (70-110)
[2017-07-17 15:30] VITALS: BP 130/80
[2017-07-17 15:34] LABS: APPEARANCE,URINE CLEAR (CLEAR); GLUCOSE, URINE (UA) >=1000 mg/dL (NEGATIVE); KETONES,URINE NEGATIVE (NEGATIVE); LEUKOCYTE ESTERASE ,URINE SMALL (NEGATIVE); OCCULT BLOOD,URINE NEGATIVE (NEGATIVE); PH,URINE 5.5 (5.0-8.0); PROTEIN,URINE NEGATIVE (NEGATIVE)
[2017-07-17 17:05] LABS: RBC,URINE 0-2 /HPF (0-2); SQUAMOUS EPITHELIAL CELL,UR Few /LPF (None Seen)
[2017-07-17 17:33] LABS: GLUCOSE,POINT OF CARE 97 MG/DL (70-110)
[2017-07-17] MEDS: QUEtiapine FUMARATE 100 MG TABLET PO SCH (20:10)
[2017-07-17] MEDS: SENNA 187 MG TABLET PO SCH (20:11)
[2017-07-17] MEDS: ATORVASTATIN CALCIUM 40 MG TABLET PO SCH (20:11)
[2017-07-17] MEDS: FENOFIBRATE,MICRONIZED 67 MG CAPSULE PO SCH (20:11)
[2017-07-18 00:09] LABS: GLUCOSE,POINT OF CARE 119 MG/DL (70-110)
[2017-07-18 05:30] VITALS: BP 101/64
[2017-07-18] MEDS: OxyCODONE HCL 5 MG IR TABLET PO PRN ×4 (05:54→23:42)
[2017-07-18] MEDS: LEVOTHYROXINE SODIUM 25 MCG TABLET PO SCH (06:02)
[2017-07-18] MEDS: CANAGLIFLOZIN 300 MG PO SCH (06:02)
[2017-07-18 06:13] LABS: GLUCOSE,POINT OF CARE 122 MG/DL (70-110)
[2017-07-18] MEDS: DOCUSATE SODIUM 250 MG CAPSULE PO SCH ×2 (08:52→20:24)
[2017-07-18] MEDS: POLYETHYLENE GLYCOL 3350 17 GM PACKET PO SCH (08:53)
[2017-07-18] MEDS: ASPIRIN 81 MG EC TABLET PO SCH (08:53)
[2017-07-18] MEDS: OxyCODONE HCL 10 MG ER TABLET PO SCH ×3 (08:53→20:24)
[2017-07-18] MEDS: PANTOPRAZOLE SODIUM 40 MG DR TABLET PO SCH (08:53)
[2017-07-18] MEDS: GABAPENTIN 300 MG CAPSULE PO SCH ×3 (08:53→20:24)
[2017-07-18] MEDS: FLUTICASONE FUROATE 100 MCG/INH INHALER [14] IH SCH (08:53)
[2017-07-18] MEDS: LIRAGLUTIDE 18 MG/3 ML SQ SCH (08:54)
[2017-07-18] MEDS: PRE FILLED SQ SCH (08:54)
[2017-07-18 08:59] VITALS: BP 107/75
[2017-07-18] MEDS ORDERED: LIDOCAINE HCL 5% TRANSDERMAL PATCH TD ONE (09:30)
[2017-07-18 12:40] VITALS: BP 121/75
[2017-07-18] MEDS: LISINOPRIL 20 MG TABLET PO SCH (13:13)
[2017-07-18 15:02] VITALS: BP 122/68
[2017-07-18 17:42] LABS: GLUCOSE,POINT OF CARE 141 MG/DL (70-110)
[2017-07-18] MEDS: FENOFIBRATE,MICRONIZED 67 MG CAPSULE PO SCH (20:24)
[2017-07-18] MEDS: QUEtiapine FUMARATE 100 MG TABLET PO SCH (20:24)
[2017-07-18] MEDS: SENNA 187 MG TABLET PO SCH (20:24)
[2017-07-18] MEDS: ATORVASTATIN CALCIUM 40 MG TABLET PO SCH (20:24)
[2017-07-18 20:43] LABS: GLUCOSE,POINT OF CARE 125 MG/DL (70-110)
[2017-07-18 23:42] VITALS: BP 125/70
[2017-07-19 00:38] LABS: GLUCOSE,POINT OF CARE 96 MG/DL (70-110)
[2017-07-19] MEDS ORDERED: DOCU250C91 PO (04:54)
[2017-07-19] MEDS ORDERED: MIRALAX PO (04:54)
[2017-07-19] MEDS ORDERED: OXYC20 PO (04:54)
[2017-07-19] MEDS ORDERED: LEVO25TA9 PO (04:54)
[2017-07-19] MEDS ORDERED: LISI-662 PO (04:54)
[2017-07-19] MEDS ORDERED: PANT40TA25 PO (04:54)
[2017-07-19] MEDS ORDERED: ASPI-1182 PO (04:54)
[2017-07-19] MEDS ORDERED: FENO67 PO (04:56)
[2017-07-19] MEDS ORDERED: OXYC10IR PO (04:56)
[2017-07-19] MEDS ORDERED: FLUT100B IH (04:59)
[2017-07-19 06:08] LABS: GLUCOSE,POINT OF CARE 123 MG/DL (70-110)
[2017-07-19 07:45] VITALS: BP 107/67
[2017-07-19] MEDS: OxyCODONE HCL 10 MG ER TABLET PO SCH (07:46)
[2017-07-19] MEDS: CANAGLIFLOZIN 300 MG PO SCH (07:48)
[2017-07-19] MEDS: LEVOTHYROXINE SODIUM 25 MCG TABLET PO SCH (07:49)
[2017-07-19] MEDS: GABAPENTIN 300 MG CAPSULE PO SCH (08:18)
[2017-07-19] MEDS: PANTOPRAZOLE SODIUM 40 MG DR TABLET PO SCH (08:18)
[2017-07-19] MEDS: POLYETHYLENE GLYCOL 3350 17 GM PACKET PO SCH (08:18)
[2017-07-19] MEDS: ASPIRIN 81 MG EC TABLET PO SCH (08:18)
[2017-07-19] MEDS: LISINOPRIL 20 MG TABLET PO SCH (08:18)
[2017-07-19] MEDS: DOCUSATE SODIUM 250 MG CAPSULE PO SCH (08:18)
[2017-07-19] MEDS: PRE FILLED SQ SCH (08:19)
[2017-07-19] MEDS: FLUTICASONE FUROATE 100 MCG/INH INHALER [14] IH SCH (08:19)
[2017-07-19] MEDS: LIRAGLUTIDE 18 MG/3 ML SQ SCH (08:19)
[2017-07-19] MEDS ORDERED: LIDOCAINE HCL 5% TRANSDERMAL PATCH TD SCH (09:00)
[2017-07-19] MEDS ORDERED: -LIDODERM PATCH NOTE- MISC SCH ×2 (21:00)
== END 2017-07-19 10:45 | disposition home or self-care (01) | DRG 56 ==
LOC: 2WR 18:26
PROC: 3E0234Z Introduction of Serum, Toxoid and Vaccine into Muscle, Percutaneous Approach (ICD-10-PCS; principal; 2017-07-11)
DX: G81.91 Hemiplegia, unspecified affecting right dominant side (principal); I63.9 Cerebral infarction, unspecified; F11.20 Opioid dependence, uncomplicated; I08.1 Rheumatic disorders of both mitral and tricuspid valves; F33.0 Major depressive disorder, recurrent, mild; J98.11 Atelectasis; E11.9 Type 2 diabetes mellitus without complications; E78.5 Hyperlipidemia, unspecified; G31.84 Mild cognitive impairment of uncertain or unknown etiology; G47.09 Other insomnia; G89.29 Other chronic pain; H54.7 Unspecified visual loss; I10 Essential (primary) hypertension; J45.909 Unspecified asthma, uncomplicated; Z79.82 Long term (current) use of aspirin; Z80.3 Family history of malignant neoplasm of breast; Z83.3 Family history of diabetes mellitus; Z86.73 Personal history of transient ischemic attack (TIA), and cerebral infarction without residual deficits; B96.1 Klebsiella pneumoniae [K. pneumoniae] as the cause of diseases classified elsewhere; Z23 Encounter for immunization
CPT/HCPCS: 76770; 82962; 84439; 87081; 87086; 90471; 92507; 92508; 92523; 97110; 97112; 97116; 97150; 97163; 97166; 97530; 97535; 99366; J1644; J3535

== ENCOUNTER 2017-09-07 11:54 | Emergency (ER) | payer MEDICARE, OTHER ==
[~2017-09-07] VITALS: Ht 162.6 cm; Wt 87.3 kg
[~2017-09-07 11:54] MED LIST changes: -ALBU8.5H3 IH; +ASPI-1182 PO; +DOCU250C91 PO; +FENO67 PO; +FLUT100B IH; +LEVO25TA9 PO; +MIRALAX PO; +OXYC10IR PO; +OXYC20 PO; -OXYC30TA2 PO; +PANT40TA25 PO; +QUET100T PO
[2017-09-07 11:56] VITALS: BP 128/65
== END 2017-09-07 12:12 | disposition left against medical advice (07) ==
LOC: EMS 11:56
DX: Z53.21 Procedure and treatment not carried out due to patient leaving prior to being seen by health care provider (principal)
CPT/HCPCS: 93005

== ENCOUNTER 2018-05-24 16:38 | Inpatient (IN) | payer MEDICARE, OTHER ==
[~2018-05-24] VITALS: Ht 160 cm; Wt 92.5 kg
[2018-05-24 16:49] LABS: GLUCOSE,POINT OF CARE 122 MG/DL (70-110)
[2018-05-24 17:43] LABS: BASOPHILS % (AUTO) 1.2 % (0.0-2.0); EOSINOPHILS % (AUTO) 5.4 % (1.0-6.0); HEMATOCRIT 37.3 % (36-46); HEMOGLOBIN 12.2 g/dL (12.0-16.0); LYMPHOCYTES # (AUTO) 3.2 K/uL (1.0-4.8); LYMPHOCYTES % (AUTO) 46.6 % (22.0-44.0); MEAN CORPUSCULAR HEMOGLOBIN 29.6 pg (26.0-34.0); MEAN CORPUSCULAR HGB CONC 32.8 G/dL (31.0-37.0); MEAN CORPUSCULAR VOLUME 90 fL (80-100); MONOCYTES # (AUTO) 0.7 K/uL (0.1-1.0); MONOCYTES % (AUTO) 10.1 % (2.0-9.0); NEUTROPHILS # (AUTO) 2.5 K/uL (1.8-7.7); NEUTROPHILS % (AUTO) 36.7 % (40.0-70.0); PLATELET COUNT (AUTO) 383 K/uL (150-450); RED BLOOD CELL COUNT(AUTO) 4.13 MIL/uL (4.00-5.20); RED CELL DISTRIBUTION WIDTH 15.7 % (11.5-14.5)
[2018-05-24 17:49] LABS: ANION GAP 9 mmol/L (8-16); CALCIUM, TOTAL 9.1 mg/dL (8.8-10.5); CARBON DIOXIDE 28 mmol/L (22-29); CHLORIDE 108 mmol/L (98-107); CREATININE 1.07 mg/dL (0.60-1.30); GLOMERULAR FILTR. RATE CALC > 60 mL/min (>60); GLUCOSE,RANDOM 109 mg/dL (70-110); POTASSIUM 4.2 mmol/L (3.5-5.1); SODIUM SERUM 145 mmol/L (136-145); UREA NITROGEN, BLOOD 13 mg/dL (7-18)
[2018-05-24 17:54] LABS: PROTHROMBIN TIME 10.2 SEC (9.4-11.6)
[2018-05-24 18:07] LABS: B-TYPE NATRIURETIC PEPTIDE 11 pg/mL (0-100)
[2018-05-24 18:15] LABS: ALANINE AMINOTRANSFERASE 22 U/L (12-78); ALBUMIN 3.6 g/dL (3.4-5.0); ALKALINE PHOSPHATASE 124 U/L (46-116); ASPARTATE AMINOTRANSFERASE 12 U/L (15-37); BILIRUBIN,TOTAL 0.2 mg/dL (0.1-1.0); CREATINE KINASE, TOTAL ONLY 160 U/L (26-192)
[2018-05-24] MEDS ORDERED: ASPIRIN 81 MG CHEWABLE TABLET PO ONE (18:15)
[2018-05-24] MEDS ORDERED: HYDROCODONE/ACETAMINOPHEN 5-325 MG TABLET PO ONE (18:15)
[2018-05-24] MEDS ORDERED: ACETAMINOPHEN 325 MG TABLET PO PRN ×2 (20:15→21:15)
[2018-05-24] MEDS ORDERED: 0.9% SODIUM CHLORIDE 10 ML SYRINGE IVP PRN (20:15)
[2018-05-24 20:28] VITALS: BP 136/74
[2018-05-24] MEDS ORDERED: ALBUTEROL SULFATE 2.5 MG/0.5 ML NEB SOLUTION NEB PRN (21:15)
[2018-05-24] MEDS ORDERED: HYDROCODONE/ACETAMINOPHEN 5-325 MG TABLET PO PRN (21:15)
[2018-05-24] MEDS ORDERED: MAGNESIUM HYDROXIDE SUSPENSION 30 ML UDCUP PO PRN (21:15)
[2018-05-24] MEDS ORDERED: BISACODYL 10 MG RECTAL RECTAL SUPPOSITORY PR PRN (21:15)
[2018-05-24] MEDS ORDERED: INSULIN LISPRO 100 UNITS/ML SQ PRN (21:30)
[2018-05-24] MEDS ORDERED: DEXTROSE 50%-WATER 25 GM/50 ML SYRINGE IVP PRN (21:30)
[2018-05-24] MEDS ORDERED: ATORVASTATIN CALCIUM 20 MG TABLET PO SCH (21:30)
[2018-05-24] MEDS ORDERED: DOCUSATE SODIUM 100 MG CAPSULE PO ONE (21:30)
[2018-05-24] MEDS ORDERED: OXYC80 PO (22:37)
[2018-05-24] MEDS ORDERED: QUET50XR PO (22:37)
[2018-05-24] MEDS ORDERED: OXYC10 PO (22:38)
[2018-05-24 23:15] VITALS: BP 142/75
[2018-05-24] MEDS: QUEtiapine FUMARATE 100 MG TABLET PO SCH (23:26)
[2018-05-25 00:38] LABS: AMPHET/METH SCREEN,URINE NEGATIVE (NEGATIVE); BARBITURATE SCREEN, URINE NEGATIVE (NEGATIVE); BENZODIAZEPINES SCREEN,URINE NEGATIVE (NEGATIVE); CANNABINOID SCREEN,URINE NEGATIVE (NEGATIVE); COCAINE SCREEN,URINE NEGATIVE (NEGATIVE); METHADONE SCREEN, URINE NEGATIVE (NEGATIVE); OPIATE SCREEN,URINE POSITIVE (NEGATIVE); PHENCYCLIDINE SCREEN,URINE NEGATIVE (NEGATIVE)
[2018-05-25 03:20] VITALS: BP 110/66
[2018-05-25] MEDS: OxyCODONE HCL/ACETAMINOPHEN 5-325 MG TABLET PO PRN ×2 (03:28→11:56)
[2018-05-25 06:33] LABS: BASOPHILS % (AUTO) 0.6 % (0.0-2.0); EOSINOPHILS % (AUTO) 5.2 % (1.0-6.0); HEMATOCRIT 35.8 % (36-46); HEMOGLOBIN 11.7 g/dL (12.0-16.0); LYMPHOCYTES # (AUTO) 3.2 K/uL (1.0-4.8); LYMPHOCYTES % (AUTO) 46.2 % (22.0-44.0); MEAN CORPUSCULAR HEMOGLOBIN 29.5 pg (26.0-34.0); MEAN CORPUSCULAR HGB CONC 32.6 G/dL (31.0-37.0); MEAN CORPUSCULAR VOLUME 91 fL (80-100); MONOCYTES # (AUTO) 0.6 K/uL (0.1-1.0); MONOCYTES % (AUTO) 8.9 % (2.0-9.0); NEUTROPHILS # (AUTO) 2.7 K/uL (1.8-7.7); NEUTROPHILS % (AUTO) 39.1 % (40.0-70.0); PLATELET COUNT (AUTO) 381 K/uL (150-450); RED BLOOD CELL COUNT(AUTO) 3.95 MIL/uL (4.00-5.20)
[2018-05-25 06:54] LABS: ALANINE AMINOTRANSFERASE 22 U/L (12-78); ALBUMIN 3.4 g/dL (3.4-5.0); ALKALINE PHOSPHATASE 112 U/L (46-116); ANION GAP 6 mmol/L (8-16); ASPARTATE AMINOTRANSFERASE 14 U/L (15-37); BILIRUBIN,TOTAL 0.3 mg/dL (0.1-1.0); CALCIUM, TOTAL 9.1 mg/dL (8.8-10.5); CARBON DIOXIDE 31 mmol/L (22-29); CHLORIDE 106 mmol/L (98-107); CREATININE 1.06 mg/dL (0.60-1.30); GLOMERULAR FILTR. RATE CALC > 60 mL/min (>60); GLUCOSE,RANDOM 112 mg/dL (70-110); POTASSIUM 4.3 mmol/L (3.5-5.1); SODIUM SERUM 143 mmol/L (136-145); TOTAL PROTEIN, SERUM 7.6 g/dL (6.4-8.2); UREA NITROGEN, BLOOD 16 mg/dL (7-18)
[2018-05-25 08:18] VITALS: BP 128/59
[2018-05-25] MEDS: QUEtiapine FUMARATE 100 MG TABLET PO SCH (08:44)
[2018-05-25 09:00] LABS: GLUCOMETER DEV NAME(LOC) 5S 1M; GLUCOSE,POINT OF CARE 117 MG/DL (70-110)
[2018-05-25] MEDS ORDERED: PANTOPRAZOLE SODIUM 40 MG DR TABLET PO SCH (09:00)
[2018-05-25] MEDS ORDERED: DOCUSATE SODIUM 100 MG CAPSULE PO SCH (09:00)
[2018-05-25] MEDS ORDERED: ASPIRIN 81 MG CHEWABLE TABLET PO SCH (09:00)
[2018-05-25 12:21] VITALS: BP 138/83
[2018-05-25 23:19] LABS: GLUCOMETER DEV NAME(LOC) 5N 1P; GLUCOSE,POINT OF CARE 102 MG/DL (70-110)
== END 2018-05-25 15:15 | disposition home or self-care (01) | DRG 158 ==
LOC: EMS 16:40 → 5S 19:00
PROVIDERS: ADMIT Internal Medicine; ATTEND Internal Medicine
DX: K08.409 Partial loss of teeth, unspecified cause, unspecified class (principal); F11.20 Opioid dependence, uncomplicated; F41.9 Anxiety disorder, unspecified; J45.909 Unspecified asthma, uncomplicated; I25.10 Atherosclerotic heart disease of native coronary artery without angina pectoris; J44.9 Chronic obstructive pulmonary disease, unspecified; F32.9 Major depressive disorder, single episode, unspecified; E11.9 Type 2 diabetes mellitus without complications; E66.01 Morbid (severe) obesity due to excess calories; I10 Essential (primary) hypertension; H54.61 Unqualified visual loss, right eye, normal vision left eye; F17.210 Nicotine dependence, cigarettes, uncomplicated; G89.29 Other chronic pain; Z71.6 Tobacco abuse counseling; Z90.710 Acquired absence of both cervix and uterus; Z68.36 Body mass index [BMI] 36.0-36.9, adult; Z86.73 Personal history of transient ischemic attack (TIA), and cerebral infarction without residual deficits; Z87.440 Personal history of urinary (tract) infections
CPT/HCPCS: 70450; 70551; 80307; 93005; 99285

== ENCOUNTER 2019-06-06 14:34 | Emergency (ER) | payer MEDICARE, OTHER ==
[~2019-06-06] VITALS: Ht 162.6 cm; Wt 81.8 kg
[~2019-06-06 14:34] MED LIST changes: -LIRA0.6P SQ; +OXYC10 PO; -OXYC10IR PO; -OXYC20 PO; +OXYC80 PO; -QUET100T PO; +QUET50TA15 PO
[2019-06-06 14:52] LABS: GLUCOSE,POINT OF CARE 156 MG/DL (70-110)
[2019-06-06] MEDS ORDERED: KETOROLAC TROMETHAMINE 30 MG/ML VIAL IM ONE (16:45)
[2019-06-06] MEDS ORDERED: CAPSAICIN 0.025% 60 GM CREAM TP ONE (16:45)
[2019-06-06 16:58] VITALS: BP 140/80
== END 2019-06-06 17:49 | disposition home or self-care (01) ==
LOC: EMS 14:36
DX: S16.1XXA Strain of muscle, fascia and tendon at neck level, initial encounter (principal); G89.29 Other chronic pain; M54.5 Low back pain; F17.210 Nicotine dependence, cigarettes, uncomplicated; F41.9 Anxiety disorder, unspecified; E11.9 Type 2 diabetes mellitus without complications; J44.9 Chronic obstructive pulmonary disease, unspecified; Z86.73 Personal history of transient ischemic attack (TIA), and cerebral infarction without residual deficits; X58.XXXA Exposure to other specified factors, initial encounter; Y93.89 Activity, other specified; Y92.89 Other specified places as the place of occurrence of the external cause; Y99.8 Other external cause status; Z88.2 Allergy status to sulfonamides; Z79.899 Other long term (current) drug therapy; Z79.82 Long term (current) use of aspirin; Z98.890 Other specified postprocedural states
CPT/HCPCS: 99406; J1885

== ENCOUNTER 2019-08-18 21:44 | Emergency (ER) | payer MEDICARE, OTHER ==
[~2019-08-18] VITALS: Ht 162.6 cm; Wt 84.0 kg
[~2019-08-18 21:44] MED LIST changes: +DOCU-342 PO; -DOCU250C91 PO; -FENO67 PO; +FENO67CA8 PO; -MIRALAX PO; -OXYC10 PO; +OXYC10TA59 PO; -OXYC80 PO; -PANT40TA25 PO
[2019-08-18 22:21] LABS: GLUCOSE,POINT OF CARE 111 MG/DL (70-110)
[2019-08-19] MEDS ORDERED: TraMADol HCL 50 MG TABLET PO ONE (00:15)
[2019-08-19 00:31] VITALS: BP 116/80
== END 2019-08-19 00:45 | disposition home or self-care (01) ==
LOC: EMS 21:48
DX: S00.93XA Contusion of unspecified part of head, initial encounter (principal); S10.93XA Contusion of unspecified part of neck, initial encounter; J45.909 Unspecified asthma, uncomplicated; I25.10 Atherosclerotic heart disease of native coronary artery without angina pectoris; J44.9 Chronic obstructive pulmonary disease, unspecified; F32.9 Major depressive disorder, single episode, unspecified; E11.9 Type 2 diabetes mellitus without complications; F41.9 Anxiety disorder, unspecified; F17.210 Nicotine dependence, cigarettes, uncomplicated; Z90.710 Acquired absence of both cervix and uterus; Z88.1 Allergy status to other antibiotic agents; Z79.82 Long term (current) use of aspirin; Z79.899 Other long term (current) drug therapy; W19.XXXA Unspecified fall, initial encounter; Y93.01 Activity, walking, marching and hiking; Y92.89 Other specified places as the place of occurrence of the external cause; Y99.8 Other external cause status
CPT/HCPCS: 70450; 72125

== ENCOUNTER 2019-08-21 22:04 | Emergency (ER) | payer MEDICARE, OTHER ==
[~2019-08-21] VITALS: Ht 162.6 cm; Wt 84.1 kg
[~2019-08-21 22:04] MED LIST changes: -CANA100T PO; -DOCU-342 PO; -FENO67CA8 PO; -FLUT100B IH; -OXYC10TA59 PO
[2019-08-21] MEDS ORDERED: SEMA1PEN SQ (22:26)
[2019-08-21 22:37] LABS: GLUCOSE,POINT OF CARE 117 MG/DL (70-110)
[2019-08-22] MEDS: KETOROLAC TROMETHAMINE 30 MG/ML VIAL IM ONE (00:24)
[2019-08-22] MEDS: ACETAMINOPHEN 500 MG TABLET PO ONE (00:24)
[2019-08-22] MEDS: LIDOCAINE 5% TRANSDERMAL PATCH TD ONE (00:24)
[2019-08-22 01:18] VITALS: BP 129/74
== END 2019-08-22 01:45 | disposition home or self-care (01) ==
LOC: EMS 22:06
DX: S16.1XXA Strain of muscle, fascia and tendon at neck level, initial encounter (principal); M25.521 Pain in right elbow; E11.9 Type 2 diabetes mellitus without complications; E03.9 Hypothyroidism, unspecified; I10 Essential (primary) hypertension; J44.9 Chronic obstructive pulmonary disease, unspecified; F17.210 Nicotine dependence, cigarettes, uncomplicated; F32.9 Major depressive disorder, single episode, unspecified; F41.9 Anxiety disorder, unspecified; Z90.710 Acquired absence of both cervix and uterus; Z98.890 Other specified postprocedural states; Z86.73 Personal history of transient ischemic attack (TIA), and cerebral infarction without residual deficits; Z79.899 Other long term (current) drug therapy; Z88.2 Allergy status to sulfonamides; W18.39XA Other fall on same level, initial encounter; Y93.89 Activity, other specified; Y92.89 Other specified places as the place of occurrence of the external cause; Y99.8 Other external cause status
CPT/HCPCS: 73080; 82962; 96372; 99283; J1885